=== PATIENT | female | born 1970 | race Hispanic/Latino ===

== ENCOUNTER 2017-07-24 09:27 | Outpatient (CLI) | payer MEDICARE ==
--- NOTE | 2017-07-24 11:46 | XRay Report ---
X-RAY RIGHT CLAVICLE TWO VIEWS: 07/24/17 09:27:00 CLINICAL: Trauma three days ago and right shoulder pain. FINDINGS: Displaced fracture of the distal clavicle with disruption of the acromioclavicular joint. Superior displacement of the major distal clavicular fracture fragment.No callus.The shoulder is normal. Normal soft tissues. IMPRESSION: A subacute traumatic displaced fracture of the distal clavicle with disruption of the acromioclavicular joint.
--- NOTE | 2017-07-24 11:48 | XRay Report ---
XRAY RIGHT SHOULDER THREE VIEWS: 07/24/17 09:27:00 CLINICAL: Trauma three days ago and right shoulder pain. FINDINGS: Normal glenohumeral alignment and normal glenohumeral joint. Fracture of the distal clavicle with disruption of the acromioclavicular joint and displacement of the major distal fracture fragment. No callus. No other fracture. Normal soft tissues. IMPRESSION: A closed traumatic displaced fracture of the distal clavicle with disruption of the acromioclavicular joint. The shoulder is otherwise normal.
== END 2017-07-24 09:28 | disposition home or self-care (01) ==
LOC: SPVIMAG 09:27
PROVIDERS: ATTEND Psychiatry & Neurology Neurology
DX: S42.031A Displaced fracture of lateral end of right clavicle, initial encounter for closed fracture (principal); X58.XXXA Exposure to other specified factors, initial encounter; Y93.89 Activity, other specified; Y92.89 Other specified places as the place of occurrence of the external cause; Y99.8 Other external cause status